=== PATIENT | male | born 1940 | race Caucasian/White ===

== ENCOUNTER 2020-07-23 07:57 | Outpatient (CLI) | payer OTHER, SELFPAY ==
--- NOTE | ~2020-07-23 | XR_ITS ---
EXAMINATION: UGI AIR CONTRAST W/ ESOPHAGRAM DATE: 04/21/07 09:43:00 INDICATION: Dysphagia and cough with solids and liquids TECHNIQUE: Thick contrast with and without gas effervescent crystals were administered orally. Fluor oscopic images of the esophagus, stomach, and proximal duodenum were obtained in various projections. The hypopharynx was also imaged. Thereafter, overhead images of the thoracic esophagus and abdomen w ere performed. 1 minute of fluoroscopy. 53 fluoroscopic images. FINDINGS: No prior studies for comparison. The esophagus is normal in caliber, without mucosal lesions or strictures. There is normal esophagea l peristalsis. There is a small sliding hiatal hernia with gastroesophageal reflux. The hypopharynx i s normal. The gastric folds are normal. The proximal duodenum is also normal in appearance. IMPRESSION: 1. Small sliding hiatal hernia with gastroesophageal reflux. Reviewed, dictated and finalized at location A.
== END 2020-07-23 07:58 | disposition home or self-care (01) ==
PROVIDERS: PCP Family Medicine; Visit Provider Nurse Practitioner Family
DX: K44.9 Diaphragmatic hernia without obstruction or gangrene (principal); R13.10 Dysphagia, unspecified
CPT/HCPCS: 74240

== ENCOUNTER 2020-08-11 09:23 | Emergency (ER) | payer OTHER, SELFPAY ==
[2020-08-11 09:29] VITALS: BP 153/112; PULSE 70; RESP 19; TEMP 36.8; O2SAT 98
--- NOTE | 2020-08-11 10:01 | ED.GENADULT ---
HPI - General Adult General Chief complaint: Unspecified Stated complaint: Nose Bleed Time Seen by Provider: 08/11/20 09:43 Source: patient and family () Mode of arrival: ambulatory Limitations: no limitations History of Present Illness HPI narrative: Patient is here for evaluation of nosebleed that has been occurring periodically for the past 2 weeks. States that the nosebleeds occur at night when he is laying down. They subside when he gets up and sits in his chair but this particular nosebleed last night produced a lot of blood was very concerning. The bleeding is stopped since he is arrived here. He denies any headache when he has these episodes. He denies any trauma recent or remote, he does pick at his nose when he feels a crusting of blood. The only treatment has been some bacitracin ointment to the nares opening. Onset (ago): week(s) Severity: mild Relieving factors: other (time) Exacerbating factors: none Associated symptoms: denies other symptoms Treatments prior to arrival: none Related Data Home Medications Medication Instructions Recorded Confirmed ascorbic acid (vitamin C) 500 mg mg PO 04/01/20 07/17/20 capsule aspirin 81 mg tablet,delayed 81 mg PO DAILY 04/01/20 07/17/20 release atorvastatin 10 mg tablet 10 mg PO DAILY 04/01/20 07/17/20 calcium polycarbophil 625 mg tablet 1,250 mg PO DAILY 04/01/20 07/17/20 coenzyme Q10 10 mg capsule 10 mg PO ONCE 04/01/20 07/17/20 docusate sodium 100 mg capsule 100 mg PO DAILY 04/01/20 07/17/20 furosemide 20 mg tablet 20 mg PO QAM 04/01/20 07/17/20 omega-3 fatty acids 1,000 mg 1,000 mg PO DAILY 04/01/20 07/17/20 capsule omeprazole 40 mg capsule,delayed 40 mg PO DAILY 04/01/20 07/17/20 release primidone 50 mg tablet 125 mg PO BID 04/01/20 07/17/20 propranolol 80 mg tablet 80 mg PO Q12H 04/01/20 07/17/20 sertraline 50 mg tablet 50 mg PO DAILY 04/01/20 07/17/20 Allergies Allergy/AdvReac Type Severity Reaction Status Date / Time adhesive tape Allergy Unknown Rash Verified 08/11/20 09:32 Review of Systems Review of Systems: All systems reviewed & are unremarkable except as noted in HPI and below PMFSH Past Medical History Medical History Adenomatous polyps Constipation Dysphagia GERD (gastroesophageal reflux disease) HTN (hypertension) Morbid obesity Family History Family History Other Diabetes mellitus Family history of alcoholism Family history of arthritis Family history of blood dyscrasia Family history of gout Family history of mental disorder Hypertension Social History Social History Alcohol intake: never Substance use: never Exam Const: General: cooperative, healthy appearing, comfortable and no acute distress Limitations: no limitations HENMT: Head: normal to inspection and atraumatic General nose exam: Normal external nose present, Normal nares present, No nasal polyps present and Normal septum present Face and sinus: sinuses nontender Mouth: Yes Normal oral and palatal mucosa present Resp: Effort & Inspection: normal respiratory effort (can breathe easily through nose.) Skin: General skin exam: normal color and no rashes or lesions noted Course Course Emergency Course: Labs reviewed with patient and his . Recommend follow-up with ear nose and throat doctor, use normal saline spray nasal membranes moist. Do not pick at your nares. Vital Signs Vital signs: Vital Signs Temperature 36.8 C 08/11/20 09:29 Pulse Rate 70 08/11/20 09:29 Respiratory Rate 19 08/11/20 09:29 Blood Pressure 153/112 H 08/11/20 09:29 Pulse Oximetry 98 08/11/20 09:29 Temperature 36.8 C 08/11/20 09:29 Pulse Rate 70 08/11/20 09:29 Respiratory Rate 19 08/11/20 09:29 Blood Pressure 153/112 H 08/11/20 09:29 Pulse Oximetry 98 08/11/20 09:29
[2020-08-11 10:31] LABS: Basophils Percent Auto 0.6 % (0.2-1.2); Eosinophils Absolute Auto 0.2 K/mm3 (0-0.3); Eosinophils Percent Auto 2.9 % (0-4.4); Hematocrit 44.4 % (42.0-52.0); Hemoglobin 13.9 g/dL (14.0-18.0); Immature Granulocyte Absolute 0.02 K/mm3 (0.00-0.031); Immature Granulocyte Percent A 0.3 % (0-0.5); Lymphocytes Percent Auto 19.1 % (18.3-44.2); Mean Corpuscular HGB Conc 31.3 g/dl (32-36); Mean Corpuscular Hemoglobin 29.3 pg (26-34); Mean Corpuscular Volume 93.7 fl (80-100); Mean Platelet Volume 10.2 fl (7.4-10.4); Monocytes Absolute Auto 0.6 K/mm3 (0.1-0.6); Monocytes Percent Auto 9.1 % (2.6-8.5); Neutrophils Absolute Auto 4.3 K/mm3 (1.3-6.7); Platelet Count Result 215 k/mm3 (150-375); Red Blood Count 4.74 M/mm3 (4.6-6.20); Red Cell Distribution Width 16.1 % (11.5-14.5); White Blood Count 6.3 K/mm3 (4.5-10.0)
[2020-08-11 10:41] LABS: Prothrombin Time 13.4 Seconds (11.1-14.7)
[2020-08-11 10:42] LABS: Partial Thromboplastin Time 34.3 SECONDS (22.3-36.8)
[2020-08-11 11:55] VITALS: BP 123/86; PULSE 66; RESP 17; O2SAT 99
== END 2020-08-11 11:57 | disposition home or self-care (01) ==
PROVIDERS: Physician Assistant; Emergency Provider Emergency Medicine; PCP Family Medicine
DX: R04.0 Epistaxis (principal); I10 Essential (primary) hypertension; Z79.82 Long term (current) use of aspirin
CPT/HCPCS: 36415; 85025; 85610; 85730; 99283

== ENCOUNTER 2021-07-22 10:49 | Outpatient (CLI) | payer OTHER, SELFPAY ==
[2021-07-22 11:51] LABS: Cholesterol 118 mg/dL (0-200); HDL Direct 36 mg/dL; Triglycerides 94 mg/dL (<150)
[2021-07-22 12:02] LABS: LDL Cholesterol Direct 58 mg/dL
== END 2021-07-22 10:50 | disposition home or self-care (01) ==
PROVIDERS: PCP Family Medicine; Visit Provider Internal Medicine Cardiovascular Disease
DX: I25.10 Atherosclerotic heart disease of native coronary artery without angina pectoris (principal)
CPT/HCPCS: 36415; 80061

== ENCOUNTER 2021-08-04 11:58 | Outpatient (CLI) | payer OTHER, SELFPAY ==
--- NOTE | ~2021-08-04 | US_ITS ---
EXAMINATION: US carotid duplex BI DATE: 08/04/2021 14:50 INDICATION: Carotid bruit TECHNIQUE: Grayscale, color Doppler, and pulsed Doppler images of the cervical carotid arteries were obtained. The degree of vessel stenosis is placed in one of the following categories: normal, <50%, 5 0-69%, >=70% but less than near-occlusion, near-occlusion, or total occlusion. Note that percent sten osis relative to normal distal artery lumen diameter is indirectly measured from velocity measurement s as described by Kaleb, et al. Radiology 2003; 229:340-346. Notes: Normal: Peak systolic velocity <125 centimeters/sec and no plaque <50%. Peak systolic velocity <125 ( EDV <40; ICA/CCA PSV ratio <2.0; used these factors only a tandem lesions or low cardiac output or co ntralateral disease) 50-69 %: PSV 125-230 (EDV 40-100; ratio 2-4) >= 70% but less than near occlusion: PSV greater than 230 (EDV > 100; ratio> 4.0) Near Occlusion: PSV that is variable; markedly narrowed lumen Occlusion: Absent flow on color/spectral Doppler and no lumen on pan scale. COMPARISON: Ultrasound dated 10/02/2012. FINDINGS: RIGHT: The right common carotid artery (CCA) peak systolic velocity (PSV) is 114 cm/s. The right internal ca rotid artery (ICA) PSV is 143 cm/s. The right ICA end-diastolic velocity (EDV) is 24 cm/s. The right ICA/CCA PSV ratio is 1.3. The external carotid artery (ECA) PSV is 134 cm/s. There is antegrade flow in the right vertebral artery. LEFT: The left CCA PSV is 108 cm/s. The left ICA PSV is 115 cm/s. The left ICA EDV is 36 cm/s. The left ICA /CCA PSV ratio is 1.1. The ECA PSV is 106 cm/s. There is antegrade flow in the left vertebral artery . IMPRESSION: 1. 50-69% stenosis in the right internal carotid artery by sonographic criteria. 2. Less than 50% stenosis in the left internal carotid artery by sonographic criteria. Reviewed, dictated and finalized at location A. IMPRESSION: 1. 50-69% stenosis in the right internal carotid artery by sonographic criteria . 2. Less than 50% stenosis in the left internal carotid artery by sonographic cr iteria.
[2021-08-04 12:25] LABS: Hematocrit 39.5 % (42.0-52.0); Mean Corpuscular HGB Conc 30.4 g/dl (32-36); Mean Corpuscular Hemoglobin 28.2 pg (26-34); Mean Corpuscular Volume 92.9 fl (80-100); Mean Platelet Volume 9.9 fl (7.4-10.4); Platelet Count Result 228 k/mm3 (150-375); Red Blood Count 4.25 M/mm3 (4.6-6.20); Red Cell Distribution Width 17.2 % (11.5-14.5); White Blood Count 7.3 K/mm3 (4.5-10.0)
[2021-08-04 12:43] LABS: Alanine Aminotransferase 8 U/L (6-50); Alkaline Phosphatase 90 U/L (38-126); Anion Gap 3 mmol/L (8-16); Aspartate Amino Transferase 30 U/L (17-59); Bilirubin,Total 0.8 mg/dL (0.2-1.3); Blood Urea Nitrogen 30 mg/dL (9-20); Calcium 8.4 mg/dL (8.4-10.2); Carbon Dioxide 31 mmol/L (22-30); Chloride 103 mmol/L (98-107); Estimated Glomerular Filt Rate > 60; Glucose 107 mg/dL (65-110); Sodium 137 mmol/L (137-145)
== END 2021-08-04 11:59 | disposition home or self-care (01) ==
PROVIDERS: PCP Family Medicine; Referring Provider Internal Medicine Cardiovascular Disease; Visit Provider Nurse Practitioner Adult Health
DX: I48.19 Other persistent atrial fibrillation (principal); R09.89 Other specified symptoms and signs involving the circulatory and respiratory systems; I65.23 Occlusion and stenosis of bilateral carotid arteries
CPT/HCPCS: 36415; 80053; 84443; 85027; 93880

== ENCOUNTER 2022-03-25 13:37 | Outpatient (CLI) | payer MEDICARE, SELFPAY ==
--- NOTE | ~2022-03-25 | XR_ITS ---
XR abdomen/kub 1V 03/25/2022 14:24 Indication: KUB Procedure: Renal mass Comparison: CT dated 06/15/2016 Findings: Bowel gas pattern is nonobstructive. Large amount of retained fecal material present in the colon. There are pelvic phleboliths. No definite renal stones. There are severe lumbar spondylosis. No acute osseous abnormality. Impression: 1: No acute abdominal abnormality. Reviewed, dictated and finalized at location A. SUPERVISOR Impression: 1: No acute abdominal abnormality.
--- NOTE | ~2022-03-25 | CT_ITS ---
EXAMINATION: CT abdomen pelvis wo/w con DATE: 03/25/2022 14:46 INDICATION: Right kidney mass. TECHNIQUE: Computed tomography (CT) of the abdomen and pelvis was performed without and with 100 mL O mnipaque 350 intravenous contrast. Automated exposure control and iterative reconstruction technique were employed. The dose-length product was 3100.24 mGy-cm. COMPARISON: CT abdomen and pelvis 06/15/2016 FINDINGS: The visualized portions of the lung bases demonstrate smooth septal thickening, consistent with mild pulmonary edema. A calcified left lung nodule is consistent with old granulomatous disease. There is a moderate-sized right pleural effusion. The heart size is normal. There are coronary arter y calcifications. No pericardial effusion. Pericardial calcifications are noted. Median sternotomy wi res are noted. Calcifications in the liver are consistent with old granulomatous disease. The spleen is normal. There is a gallstone in the gallbladder, which is normal in size. The pancreas and adrenal glands are normal. There is cortical thinning of the kidneys. There is a 3.8 cm cyst in right kidney . There is a 2.0 cm stone in the bladder. The prostate is mildly enlarged. There are bilateral inguin al hernias containing fat. There are no dilated loops of bowel. The appendix is normal. There are no pathologically enlarged lymph nodes. There is no free intraperitoneal fluid. Body wall edema is noted . There is severe lumbar spondylosis. There are bridging endplate osteophytes at multiple levels in t he thoracic spine, consistent with diffuse idiopathic skeletal hyperostosis (DISH). There is mild chr onic anterior wedging of multiple thoracic vertebral bodies. IMPRESSION: 1. 3.8 cm benign cyst in right kidney. 2. Bladder stone. 3. Mild pulmonary edema with moderate-sized right pleural effusion. Reviewed, dictated and finalized at location A. ITECTURAL SUPERINTENDENT
[2022-03-25 14:34] LABS: Estimated Glomerular Filt Rate > 60
[2022-03-25 14:38] LABS: Anion Gap 3 mmol/L (8-16); Blood Urea Nitrogen 24 mg/dL (9-20); Calcium 8.5 mg/dL (8.4-10.2); Carbon Dioxide 32 mmol/L (22-30); Chloride 106 mmol/L (98-107); Estimated Glomerular Filt Rate > 60; Glucose 85 mg/dL (65-110); Potassium 4.4 mmol/L (3.4-5.0); Sodium 141 mmol/L (137-145)
== END 2022-03-25 13:38 | disposition home or self-care (01) ==
PROVIDERS: PCP Family Medicine; Referring Provider Internal Medicine Cardiovascular Disease; Visit Provider Nurse Practitioner Adult Health
DX: N21.0 Calculus in bladder (principal); Z79.01 Long term (current) use of anticoagulants; N28.1 Cyst of kidney, acquired; J81.1 Chronic pulmonary edema
CPT/HCPCS: 36415; 74018; 74178; 80048; Q9967

== ENCOUNTER 2022-03-30 01:08 | Day surgery (SDC) | payer MEDICARE, SELFPAY ==
--- NOTE | 2022-03-25 08:54 | PC.NURSE ---
Report to the Outpatient Waiting Room, entrance under the green pavilion located off [facility], at time 0600 on date _03/30/22 . Planned Procedure Time: _0730 . Time changes happen often and if your time is changed the preop area will call you the afternoon before. - You and your visitor will be asked to self-screen and do not enter if you have any COVID symptoms. - Only one visitor is requested with a max of two and NO children visitors are allowed at this time. - The patient visitor may be requested to leave or wait in car when not with patient due to distancing restrictions. - A mask is optional within the hospital at this time. Patients may have clear liquids (water, carbonated beverages, clear teas, apple juice) until 3 hours prior to surgery with a maximum of 20 ounces. - No food from midnight until time of surgery - Infants may have breast milk until 4 hours before surgery, infant formula 6 hours prior to surgery. - Children will be allowed to drink immediately following surgery. If applicable, please bring a bottle or sippy cup to assist with drinking. Juice, water, soda, and popsicles are readily available. For infants on formula, please bring formula the day of surgery. Pacifiers are allowed. Take the following medications with a SIP of water the morning of surgery: __CARBIDOPA-LEVODOPA,PRIMIDONE,PROPRANOLOL, AND SERTRALINE DO NOT STOP ANY OF YOUR OTHER PRESCRIPTION MEDICATIONS PRIOR TO SURGERY ?EXCEPT THE FOLLOWING Medications to discontinue per physician __PT STATES HOLD XARELTO AND ASPIRIN 2 DAYS PRE OP PER DR MARIA. LAST DOSE 03/27/22. ALL VITAMINS /SUPPLEMENTS 3 DAYS PRE OP LAST DOSE 03/26/22 Please no make-up, nail malagasy, hairspray, perfume, deodorant, or body powder the day of surgery. No jewelry (including any body piercings) or valuables the day of surgery, leave them at home. Please take a shower or bath the night before, or the morning of, surgery with an antibacterial soap. Wear comfortable, loose fitting clothing. Children are encouraged to wear pajamas. - Jewelry must be removed prior to entering the operating room. Rings and piercings that are not removed may be cut off. - The hospital will not accept responsibility for valuables. - Please leave all valuables, including medications, at home the day of surgery. If you are going home after surgery, a licensed compactor driver must drive you home. - NO public transportation without another adult if you receive anesthesia. - We recommend that an adult stay with you for 24 hours following discharge. - We also recommend that you do not drive, make important decision, drink alcoholic beverages, or take any drugs that were not prescribed by your health care provider for at least 24 hours after your discharge time. For Pediatric surgeries, we recommend two adults accompany the child home. Follow any additional instructions given to you from your surgeon. If you or anyone in your household have experienced Covid symptoms in the past week, please notify your surgeon or the nurse liaison at the phone number below for possible testing. Telephone instructions given to __PATIENT AND LATRICE and asked if any additional questions and then verbalized understanding. Patient advised to call surgeon office or pre surgery nurse liaison [phone] if any additional questions.
[2022-03-25 09:17] VITALS: BMI 44.0
[2022-03-30 06:06] VITALS: BP 127/79; PULSE 70; RESP 20; TEMP 37.1; O2SAT 95
--- NOTE | 2022-03-30 09:11 | SUR.PREOP ---
0610-Pt concerned re: vein area on right ankle started bleeding at 9 last night and there was 6oz or so of blood before we could get it to stopped and put a pressure dressing on. I bumped it at 5 this morning and it started bleeding again until we put this pressure dressing on. Pt concerned as to whether he should have surgery or not and wants someone to check it out. 0615-Dr. Proctor aware of above and states surgery is elective and pt can have the area checked and then reschedule, states pt can go to ER to have it checked. 0620-Pt aware of above and after discussion, does not want to go to ER, does not want to have surgery today and feels he should be off his blood thinner an additional day. Instructed pt to call his SHOE LINING FITTER when office opens this am and inform of above. 0636-Pt discharged.
--- NOTE | 2022-04-13 07:40 | WPDHPUPDATE1 ---
History and Physical Update Update Date/Time: 04/13/22 07:40 History and Physical has been reviewed, including an updated exam of the patient. There are NO changes in the patient's condition. Risks, benefits, and alternatives have been discussed and questions answered. Patient agrees to proceed with procedure.
--- NOTE | 2022-04-13 08:20 | P.OP_ITS ---
Procedure Note - Detailed Date of Procedure 04/13/22 Pre-op Diagnosis bladder stones- 2 cm Post-op Diagnosis Same Procedure Performed Laser of bladder calculus 2 cm Surgeon Ronald Proctor MD Anesthesia General Description of Procedure patient was taken to the operative suite correctly identified. Once anesthesia was obtained was placed in dorsal lithotomy position and prepped and draped usual sterile fashion 22 Japanese scope was inserted in the bladder direct vision. Patient has no urethral strictures. The stone was seen somewhat setting right at the bladder neck with a lot of inflammatory reaction around it. Using the Shoaib laser we lasered this stone in by dusting it. Small fragments and then retrieved and sent for analysis. Reinspection revealed no residual stone. 2% viscous lidocaine was inserted into the urethra. Patient is taken recovery stable condition. He will follow-up 2-3 weeks time. Please send a copy of this report to my office. Estimated Blood Loss 0 Drains No Packing No Pathology Yes Complications No immediate complications Condition Stable Disposition PACU
== END 2022-03-30 06:36 | disposition home or self-care (01) ==
PROVIDERS: PCP Family Medicine; Visit Provider Urology
DX: N20.0 Calculus of kidney (principal); Z53.29 Procedure and treatment not carried out because of patient's decision for other reasons
CPT/HCPCS: 99211; G0463

== ENCOUNTER 2022-04-07 11:13 | Outpatient (CLI) | payer MEDICARE, SELFPAY | END 2022-04-07 11:14 | disposition home or self-care (01) | PROVIDERS: PCP Family Medicine; Visit Provider Urology | DX: N21.0 Calculus in bladder (principal); Z01.818 Encounter for other preprocedural examination | CPT/HCPCS: 87086 ==

== ENCOUNTER 2022-04-13 01:01 | Day surgery (SDC) | payer MEDICARE, SELFPAY ==
[2022-04-06 10:42] VITALS: BMI 44.1
--- NOTE | 2022-04-06 10:55 | PC.NURSE ---
PRE-OP INSTRUCTIONS, PLEASE READ CAREFULLY Report to the Outpatient Waiting Room, entrance under the green pavilion located off [facility], at time _0600_ on date _04/13/22_. Planned Procedure Time: _0730__. Time changes happen often and if your time is changed the preop area will call you the afternoon before. - You and your visitor will be asked to self-screen and do not enter if you have any COVID symptoms. - Only one visitor is requested with a max of two and NO children visitors are allowed at this time. - The patient visitor may be requested to leave or wait in car when not with patient due to distancing restrictions. - A mask is optional within the hospital at this time. Patients may have clear liquids (water, carbonated beverages, clear teas, apple juice) until 3 hours prior to surgery (0430 AM) with a maximum of 20 ounces. - No food from midnight until time of surgery Take the following medications with a SIP of water the morning of surgery: _CARBIDOPA-LEVODOPA, PRIMIDONE, PROPRANOLOL, SERTRALINE_ DO NOT STOP ANY OF YOUR OTHER PRESCRIPTION MEDICATIONS PRIOR TO SURGERY ?EXCEPT THE FOLLOWING Medications to discontinue -_ASPIRIN AND XARELTO PER DR. MARIA'S INSTRUCTIONS_ Medications to discontinue per ANESTHESIA -_VITAMINS 3 DAYS PRIOR TO SURGERY, Date to take last dose 04/09/22_ Please no make-up, nail macanese, hairspray, perfume, deodorant, or body powder the day of surgery. No jewelry (including any body piercings) or valuables the day of surgery, leave them at home. Please take a shower or bath the night before, or the morning of, surgery with an antibacterial soap. Wear comfortable, loose fitting clothing. - Jewelry must be removed prior to entering the operating room. Rings and piercings that are not removed may be cut off. - The hospital will not accept responsibility for valuables. - Please leave all valuables, including medications, at home the day of surgery. If you are going home after surgery, a licensed paratransit driver must drive you home. - NO public transportation without another adult if you receive anesthesia. - We recommend that an adult stay with you for 24 hours following discharge. - We also recommend that you do not drive, make important decision, drink alcoholic beverages, or take any drugs that were not prescribed by your health care provider for at least 24 hours after your discharge time. Follow any additional instructions given to you from your surgeon. If you or anyone in your household have experienced Covid symptoms in the past week, please notify your surgeon or the nurse liaison at the phone number below for possible testing. Telephone instructions given to _PATIENT_and asked if any additional questions and then verbalized understanding. Patient advised to call surgeon office or pre surgery nurse liaison [phone] if any additional questions.
--- NOTE | 2022-04-12 14:47 | WPDANESEPPF ---
Anes - Initial Pre Proc Eval Procedure: Operation Date: 04/13/22 07:30 Proposed Procedures p Cystoscopy, with Holmium Laser, Bladder Stones - Ronald Proctor MD Date/Time: 04/12/22 14:47 Surgeon: Ronald Proctor MD Pre Op Diagnosis: bladder stones Patient Data Age: 81 Gender: M Height: 1.78 m Weight: 139.54 kg Allergies Allergy/AdvReac Type Severity Reaction Status Date / Time adhesive tape Allergy Unknown Blister/BELEN Verified 04/13/22 06:25 H Home Medications Medication Instructions Recorded Confirmed Type aspirin 81 mg tablet,delayed 81 mg PO DAILY 04/01/20 04/13/22 History release (Adult Aspirin Regimen) atorvastatin 10 mg tablet 10 mg PO DAILY 04/01/20 04/06/22 History furosemide 20 mg tablet 40 mg PO QAM 04/01/20 04/06/22 History omeprazole 40 mg capsule,delayed 40 mg PO DAILY 04/01/20 04/06/22 History release primidone 50 mg tablet 125 mg PO BID 04/01/20 04/13/22 History propranolol 80 mg tablet 80 mg PO DAILY 04/01/20 04/13/22 History sertraline 50 mg tablet 50 mg PO DAILY 04/01/20 04/06/22 History carbidopa 25 mg-levodopa 100 mg 1 tablet PO BID 03/25/22 04/13/22 History tablet multivitamin (Daily Multi-Vitamin 1 tablet PO DAILY 03/25/22 04/13/22 History tablet) rivaroxaban 20 mg tablet (Xarelto) 20 mg PO DAILY 03/25/22 04/13/22 History cyanocobalamin (vitamin B-12) 5,000 mcg PO DAILY 04/06/22 04/13/22 History 5,000 mcg capsule levofloxacin 500 mg tablet 500 mg DAILY 04/06/22 04/06/22 History Patient hx anesthesia problems: none Family hx anesthesia problems: none Results Review: All pre-operative results and documents have been reviewed as part of the pre-operative evaluation. [facility] Past Medical History Medical History (Updated 04/12/22 @ 14:49 by Ernesto Duarte MD) Adenomatous polyps Asthma Atrial fibrillation CAD (coronary artery disease) Constipation Dysphagia GERD (gastroesophageal reflux disease) HTN (hypertension) Hx of myocardial infarction Hypercholesterolemia Morbid obesity YARITZA (obstructive sleep apnea) Parkinson disease Peripheral neuropathy TIA (transient ischemic attack) Surgical History Surgical History (Updated 04/12/22 @ 14:49 by Ernesto Duarte MD) S/P CABG (coronary artery bypass graft) Family History Family History Other Diabetes mellitus Family history of alcoholism Family history of arthritis Family history of blood dyscrasia Family history of gout Family history of mental disorder Hypertension Social History Social History Smoking packs per day: 2 Smoking cigarettes per day: 40.0 Years smoked: 21 Smoking pack-years: 42.00 Smoking status: Former smoker Tobacco type: cigarettes Second hand tobacco smoke exposure: No Smoking end date: 02/07/73 Alcohol intake: never Substance use: never Substance use type: does not use Living arrangements: with family Spiritual care concerns: No Anes - Eval Final PreProcedure Day of Procedure 04/12/22 14:47 Patient weight: morbidly obese Heart: regular rate and rhythm Lungs: clear to auscultation and normal air movement Airway: Mallampati scale class II Neurological: alert and oriented Last oral intake: >/= 8 hours ASA classification: IV Emergent: no Anesthetic plan: proceed Anesthesia type and monitoring: general LMA Results Review: All pre-operative results and documents have been reviewed as part of the pre-operative evaluation. Informed Consent: The patient's anesthetic plan and its attendant risks and benefits were discussed with the patient/family/POA. Questions were solicited and answers provided to the satisfaction of the patient/family/POA.
[2022-04-13] VITALS (8 sets, daily range): BP systolic 98–139; BP diastolic 56–79; PULSE 62–83; RESP 14–20; TEMP 36.3–36.9; O2SAT 97–100; BMI 41.9
[2022-04-13] MEDS: LACTATED RINGERS 1,000 ML 30 ML IV CONT (07:00)
--- NOTE | 2022-04-13 07:40 | HP_ITS ---
This report was moved to the correct visit on 04/13/22. Original report was signed by Ronald Proctor MD 04/13/22739. History and Physical Update Update Date/Time: 04/13/22 07:40 History and Physical has been reviewed, including an updated exam of the patient. There are NO changes in the patient's condition. Risks, benefits, and alternatives have been discussed and questions answered. Patient agrees to proceed with procedure. This report may have been done utilizing a voice recognition system. Attempts have been made to correct errors. However, there may be uncorrected grammatical, spelling, and recognition errors present. Report Initialized date/time: Ronald Proctor MD 04/13/22739 Electronically signed by: Ronald Proctor MD 04/13/22739 [email or web address]
[2022-04-13] MEDS: ceFAZolin 3 GM/D5W 100 ML 100 ML IVPB (07:47)
[2022-04-13] MEDS: LIDOCAINE HCL 2% GEL UROJET 10 ML PKG MUCOUS MEM (08:13)
--- NOTE | 2022-04-13 08:23 | OP_ITS ---
This report was moved to the correct visit on 04/13/22. Original report was signed by Ronald Proctor MD 04/13/22822. Procedure Note - Detailed Date of Procedure 04/13/22 Pre-op Diagnosis bladder stones- 2 cm Post-op Diagnosis Same Procedure Performed Laser of bladder calculus 2 cm Surgeon Ronald Proctor MD Anesthesia General Description of Procedure patient was taken to the operative suite correctly identified. Once anesthesia was obtained was placed in dorsal lithotomy position and prepped and draped usual sterile fashion 22 Polish scope was inserted in the bladder direct vision. Patient has no urethral strictures. The stone was seen somewhat setting right at the bladder neck with a lot of inflammatory reaction around it. Using the Shoaib laser we lasered this stone in by dusting it. Small fragments and then retrieved and sent for analysis. Reinspection revealed no residual stone. 2% viscous lidocaine was inserted into the urethra. Patient is taken recovery stable condition. He will follow-up 2-3 weeks time. Please send a copy of this report to my office. Estimated Blood Loss 0 Drains No Packing No Pathology Yes Complications No immediate complications Condition Stable Disposition PACU This report may have been done utilizing a voice recognition system. Attempts have been made to correct errors. However, there may be uncorrected grammatical, spelling, and recognition errors present. Report Initialized date/time: Ronald Proctor MD 04/13/22822 Electronically signed by: Ronald Proctor MD 04/13/22822 [email or web address]
== END 2022-04-13 09:45 | disposition home or self-care (01) ==
PROVIDERS: PCP Family Medicine; Visit Provider Urology
PROC: 0TCB8ZZ Extirpation of Matter from Bladder, Via Natural or Artificial Opening Endoscopic (ICD-10-PCS; CPT 52352; principal; 2022-04-13 07:30)
DX: N21.0 Calculus in bladder (principal); I25.10 Atherosclerotic heart disease of native coronary artery without angina pectoris; I10 Essential (primary) hypertension; I48.91 Unspecified atrial fibrillation; J45.909 Unspecified asthma, uncomplicated; K21.9 Gastro-esophageal reflux disease without esophagitis; I25.2 Old myocardial infarction; G47.33 Obstructive sleep apnea (adult) (pediatric); G20 Parkinson's disease; G62.9 Polyneuropathy, unspecified; E78.00 Pure hypercholesterolemia, unspecified; Z86.73 Personal history of transient ischemic attack (TIA), and cerebral infarction without residual deficits; E66.01 Morbid (severe) obesity due to excess calories; Z68.41 Body mass index [BMI] 40.0-44.9, adult; Z95.1 Presence of aortocoronary bypass graft; Z87.891 Personal history of nicotine dependence; Z79.82 Long term (current) use of aspirin
CPT/HCPCS: 52317; 82365; 87086; 88300; J0690; J2704; J3010; J7120

== ENCOUNTER 2022-12-06 10:43 | Outpatient (CLI) | payer MEDICARE, SELFPAY ==
--- NOTE | ~2022-12-06 | XR_ITS ---
XR chest 2V DATE: 12/06/2022 11:13 INDICATION: Dyspnea on exertion TECHNIQUE: PA and lateral views COMPARISON: 10/21/2017 two-view chest FINDINGS: Status post sternotomy. Heart size is within upper normal limits. No hilar or mediastinal e nlargement is evident. No pulmonary infiltrate or consolidation, pleural effusion or pulmonary vascular congestion or pneumo thorax. Diffuse osteopenia. Right glenohumeral joint replacement IMPRESSION: No active cardiopulmonary disease Status post sternotomy Reviewed, dictated and finalized at location B.
== END 2022-12-06 10:44 | disposition home or self-care (01) ==
PROVIDERS: PCP Family Medicine; Visit Provider Nurse Practitioner Adult Health
DX: R06.09 Other forms of dyspnea (principal)
CPT/HCPCS: 71046

== ENCOUNTER 2022-12-13 15:46 | Outpatient (CLI) | payer MEDICARE, SELFPAY ==
--- NOTE | ~2022-12-13 | US_ITS ---
EXAMINATION: US carotid duplex BI DATE: 12/13/2022 16:52 INDICATION: Carotid stenosis TECHNIQUE: Grayscale, color Doppler, and pulsed Doppler images of the cervical carotid arteries were obtained. The degree of vessel stenosis is placed in one of the following categories: normal, <50%, 5 0-69%, >=70% but less than near-occlusion, near-occlusion, or total occlusion. Note that percent sten osis relative to normal distal artery lumen diameter is indirectly measured from velocity measurement s as described by Kaleb, et al. Radiology 2003; [id number]:[id number]. COMPARISON: 08/04/2021 FINDINGS: RIGHT: The right common carotid artery (CCA) peak systolic velocity (PSV) is 95 cm/s. The right internal car otid artery (ICA) PSV is 144 cm/s. The right ICA end-diastolic velocity (EDV) is 37 cm/s. The right I CA/CCA PSV ratio is 1.5. Grayscale and color Doppler images yield an estimate of 50-69% diameter redu ction from plaque in the ICA. The external carotid artery (ECA) PSV is 92 cm/s. There is antegrade fl ow in the right vertebral artery. LEFT: The left CCA PSV is 151 cm/s. The left ICA PSV is 117 cm/s. The left ICA EDV is 29 cm/s. The left ICA /CCA PSV ratio is 0.8. Grayscale and color Doppler images yield an estimate of <50% diameter reductio n from plaque in the ICA. The ECA PSV is 98 cm/s. There is antegrade flow in the left vertebral arter y. IMPRESSION: 1. 50-69% stenosis in the right internal carotid artery. 2. <50% stenosis in the left internal carotid artery. 3. Cardiac arrhythmias present. Correlate with EKG. Reviewed, dictated and finalized at location A. [employer]
== END 2022-12-13 15:47 | disposition home or self-care (01) ==
LOC: ANHIMG 15:48
PROVIDERS: PCP Family Medicine; Visit Provider Nurse Practitioner Adult Health
DX: I65.23 Occlusion and stenosis of bilateral carotid arteries (principal)
CPT/HCPCS: 93880

== ENCOUNTER 2023-06-16 14:15 | Outpatient (CLI) | payer MEDICARE, SELFPAY ==
--- NOTE | 2023-06-17 12:39 | WPDPFTINT ---
PFT Procedure Performed PFT Procedure Performed Plethysmography (Lung Vol) Diffusing Cap (DLCO) Flow Vol Loop Spirometry w/o Bronchodil PFT Interpretation Lung volumes were measured with the body plethysmography method. Lung volumes are unremarkable. Spirometry showed diminished FVC, diminished expiratory flow rates and a normal FEV1 to FVC ratio of 67%. No post bronchodilator study was carried out. The restrictive pattern on spirometry in conjunction with a normal FEV1 to FVC ratio 67% and a normal total lung capacity is indicative of a nonspecific pattern. Lung diffusion capacity is mildly reduced at 65% predicted. Impression: Nonspecific pattern. Mild reduction in lung diffusion capacity.
== END 2023-06-16 14:16 | disposition home or self-care (01) ==
PROVIDERS: PCP Family Medicine; Visit Provider Nurse Practitioner Adult Health
DX: R06.09 Other forms of dyspnea (principal)
CPT/HCPCS: 94375; 94726; 94729